=== PATIENT | female | born 1935 | race Caucasian/White ===

== ENCOUNTER 2017-03-12 12:20 | Outpatient (CLI) | payer MEDICARE, BC | END 2017-03-12 12:21 | disposition home or self-care (01) | DRG 561 | LOC: CONVCARE 12:20 | PROVIDERS: ATTEND Orthopaedic Surgery | DX: S42.291D Other displaced fracture of upper end of right humerus, subsequent encounter for fracture with routine healing (principal) | CPT/HCPCS: 73030 ==